=== PATIENT | female | born 1940 | race Caucasian/White ===

== ENCOUNTER 2023-09-14 09:51 | Day surgery (SDC) | payer MEDICARE, MEDICAID ==
[~2023-09-14] VITALS: Ht 157.5 cm; Wt 102.0 kg
[2023-09-14] MEDS ORDERED: CALC-336 PO (11:18)
[2023-09-14] MEDS ORDERED: POTA-192 PO (11:18)
[2023-09-14] MEDS ORDERED: METO50TA16 PO (11:19)
[2023-09-14] MEDS ORDERED: LEVO112C4 PO (11:19)
[2023-09-14] MEDS ORDERED: LISI5TAB22 PO (11:19)
[2023-09-14] MEDS ORDERED: OMEP20CA16 PO (11:20)
[2023-09-14] MEDS ORDERED: TRAM50TA2 PO (11:20)
[2023-09-14] MEDS ORDERED: CALC0.2536 PO (11:21)
[2023-09-14] MEDS ORDERED: CINA60TA4 PO (11:22)
[2023-09-14] MEDS ORDERED: MELA10TA2 PO (11:22)
[2023-09-14] MEDS ORDERED: ZINC220T3 PO (11:23)
[2023-09-14] MEDS ORDERED: L.AC1CAP6 PO (11:23)
[2023-09-14 11:26] VITALS: BP 189/97; PULSE 63; RESP 14
[2023-09-14 11:50] VITALS: BP 189/97; PULSE 63; RESP 14
[2023-09-14] MEDS ORDERED: fentaNYL/PF 50MCG/1 ML 2ML syringe ONE (12:05)
[2023-09-14] MEDS ORDERED: MIDAZolam 1 MG/ML 5ML VIAL ONE (12:05)
[2023-09-14] MEDS ORDERED: LIDOcaine 2% Viscous 15ml cup ONE (12:05)
[2023-09-14] MEDS ORDERED: diphenhydrAMINE 50 mg/ml inj ONE (12:05)
[2023-09-14 12:25] VITALS: BP 153/92; PULSE 64; RESP 11; O2SAT 97
[2023-09-14 12:35] VITALS: BP 168/73; PULSE 62; RESP 15; O2SAT 98
[2023-09-14 12:45] VITALS: BP 175/99; PULSE 64; RESP 16; O2SAT 97
[2023-09-14 12:55] VITALS: BP 174/93; PULSE 61; RESP 15; O2SAT 98
== END 2023-09-14 12:55 | disposition home or self-care (01) ==
LOC: GI LAB 09:51
PROVIDERS: ATTEND Internal Medicine Gastroenterology
DX: K30 Functional dyspepsia (principal); K29.70 Gastritis, unspecified, without bleeding
CPT/HCPCS: 43239; J1200; J2250; J3010; J7030; Z7512; 99152; A4620